=== PATIENT | female | born 1985 | race African-American/Black ===

== ENCOUNTER 2021-04-02 10:20 | Emergency (ER) | payer MEDICARE, OTHER ==
[~2021-04-02] VITALS: Ht 162.6 cm; Wt 93.0 kg
--- NOTE | 2021-04-02 10:24 | NUR ---
pt clay accompanied by pd. per ems report, pt left a psych facilty [place]. pt ems unable to provide further history. pt is not responding appropriately while being triaged. stable vitals. awaiting md orellana.
[2021-04-02] MEDS ORDERED: OLANZAPINE 5 MG TABLET ONE (10:58)
[2021-04-02] MEDS ORDERED: OLANZAPINE ZYDIS 5 MG TAB.RAPDIS PO ONE (11:00)
--- NOTE | 2021-04-02 11:07 | NUR ---
patient refuses to give urine at this time
[2021-04-02 11:29] LABS: BASOPHILS # (AUTO) 0.1 /CMM (0.0-0.2); BASOPHILS % (AUTO) 0.8 % (0.0-2.0); EOSINOPHILS % (AUTO) 0.4 % (0.0-6.0); HEMATOCRIT 40 % (33-45); HEMOGLOBIN 13.3 g/dL (11.5-14.8); LYMPHOCYTES # (AUTO) 1.6 /CMM (0.8-4.8); LYMPHOCYTES % (AUTO) 23.4 % (20.0-44.0); MEAN CORPUSCULAR HGB CONC 33 g/dl (31.0-36.0); MEAN CORPUSCULAR VOLUME 93 fL (82-100); MONOCYTES # (AUTO) 0.6 /CMM (0.1-1.30); MONOCYTES % (AUTO) 9.7 % (2.0-12.0); NEUTROPHILS # (AUTO) 4.4 /CMM (1.8-8.9); NEUTROPHILS % (AUTO) 65.7 % (43.0-81.0); PLATELET COUNT (AUTO) 244 /CMM (150-450); RED BLOOD CELL COUNT(AUTO) 4.28 MIL/uL (4.0-5.2); WHITE BLOOD COUNT (AUTO) 6.7 K/uL (4.3-11.0)
[2021-04-02 11:43] LABS: CALCIUM, SERUM 8.9 mg/dL (8.5-10.1); CARBON DIOXIDE 31 mmol/L (21-32); CHLORIDE 101 mmol/L (98-107); CREATININE 1.1 mg/dL (0.6-1.3); GLUCOSE 79 mg/dL (74-106); POTASSIUM 3.5 mmol/L (3.5-5.1); SODIUM SERUM 137 mmol/L (136-145); UREA NITROGEN, BLOOD 11 mg/dL (7-18)
[2021-04-02 11:49] LABS: ALANINE AMINOTRANSFERASE 18 U/L (12-78); ALBUMIN 3.9 g/dL (3.4-5.0); ALCOHOL, BLOOD < 3 mg/dL (0-0); ALKALINE PHOSPHATASE 60 U/L (46-116); ASPARTATE AMINOTRANSFERASE 26 U/L (15-37); BILIRUBIN,DIRECT 0.1 mg/dL (0.0-0.2); BILIRUBIN,TOTAL 0.6 mg/dL (0.2-1.0); TOTAL PROTEIN, SERUM 7.4 g/dL (6.4-8.2)
[2021-04-02 11:50] LABS: ACETAMINOPHEN 0 ug/ml (10-30)
--- NOTE | 2021-04-02 12:09 | NUR ---
URINE COLLECTED AND SENT TO THE LAB
[2021-04-02 12:23] LABS: BILIRUBIN,URINE Negative (NEGATIVE); COLOR,URINE YELLOW (YELLOW); LEUKOCYTE ESTERASE ,URINE Trace (NEGATIVE); NITRITE, URINE Negative (NEGATIVE); PH,URINE 7.5 (5.0-8.0); PROTEIN,URINE Negative (NEGATIVE); UGLUCOSE Negative (NEGATIVE)
--- NOTE | 2021-04-02 12:34 | NUR ---
Good Tapia (conservator) [phone]
[2021-04-02 12:46] LABS: BACTERIA,URINE Few /HPF (None Seen); RBC,URINE 0-2 /HPF (0-2); SQUAMOUS EPITHELIAL CELL,UR Few /HPF (None Seen)
--- NOTE | 2021-04-02 13:13 | NUR ---
THE PATIENT RESTING IN BED. IN NO APPARENT DISTRESS.
--- NOTE | 2021-04-02 15:10 | NUR ---
SS Consult: SS consult requested for pt. on a 5150 for DTS by [employer]. The pt. is a 36-year old Black female. Per hold, [employer] were called as [place]. [place] a mall [place] the fire [place]. Per hold, pt. was responding to internal stimuli & told police that she has Hx. of Bipolar Disorder and Schizophrenia and had recently AWOLed from a Mental Health Facility. Per hold pt. also stated she wanted to hurt herself by unknown means, had not slept or taken her medication. ERNIE met with pt. bedside. The pt. is alert & oriented x 1 (person). Pt. is irritable, disoriented with pressured speech.Pt. is a poor historian. Patient requested SW to call her Conservator, Good Tapia [phone]. ERNIE called and spoke to Good to gather collateral information. Good stated that he had just visited the pt. in the ED. Good provides Conservatorship paperwork which outlines that Good is Conservator of the Person Only. Per Good, he admitted the pt. so [facility] as pt. is on a waitlist for an [facility]. Per Conservator, he would lie pt. to be placed at any [facility] facility. Per conservator, pt. may return to [facility]. ERNIE faxed clinicals, hold & conservatorship paperwork to [facility] fax: [phone] [facility] fax: [phone]; and to [facility] FAX:[phone] TEL: [phone]] for psychiatric placement. Pending placement. ERNIE notified nursing. ERNIE placed the following Mental Health resources in pt.s discharge packet: Counseling--Outpatient [facility] [place] [address] [place] [address] [place] [address] (Specializes in in-depth psychotherapy for emotional distress: anxiety, depression, interpersonal conflicts, life transitions, childhood abuse) [facility] [address] [place] [address] (Assist with solving problem marital difficulties, separation & divorce, aging parents, & grief, chronic & terminal illness) [facility] [address] [place] [address] (Deal with loss & grief, anxiety, marital difficulties) [facility] [address] [place], [place] [address] (Provide in-home mental services to people who are incapable of leaving their homes) [facility] [address] [place] [address] [facility] [address] [place], [place] [id number] PSYCHIATRIC OUTPATIENT SERVICES [facility] Partial Hospitalization and Intensive Outpatient Program (Managed Care and [place] Only)[address] [facility] [phone] [facility] Partial Hospitalization and Outpatient Gdyitkw[address] [facility] [address] [place], [place] [phone] [facility] Partial Hospitalization and Outpatient [address] [place], [place] [phone] Count includes the [facility] [address] [place], [place] [phone] [facility] Partial Hospitalization and Outpatient Rclyhcz85676 [facility] [place], [phone] Crisis and Hotline Telephone Numbers 24-Hour service unless stated [place] Crisis Hotlines: [facility] Mental Health/Crisis Line........[phone] Suicide Prevention Center (24 Hours).......[phone] Suicide Prevention Crisis Center.......[phone] (24 Hours) Assaults Against Women Hotline.........469.840.7630 (24 Hours -- [facility]) Women [facility] Children Crisis Retirement...........[phone] (24 Hours) Child Abuse Hotline............827.121.6546 [facility] (24 Hours)..........[phone] Alcoholics Anonymous (24 Hours)..........[phone] Cocaine Anonymous (24 Hours)............[phone] Narcotics Anonymous (24 Hours)..........[phone] [facility] [address] [place] [address] Mental Health Services [facility] [place] [address] [place] [address] Services: Outpatient therapy for children, teens, young adults, adults, older adults, and families; Psychiatric services, medication support Crisis and Hotline Telephone Numbers 24-Hour service unless stated [place] Crisis Hotlines: [place] Mental Health/Crisis Line........661.612.7387 Suicide Prevention Center (24 Hours).......313.714.1888 Suicide Prevention Crisis Center.......[phone] (24 Hours) Alcoholics Anonymous (24 Hours)..........[phone] National Crisis Hotlines: Alcohol and Drug Helpline - Provides referrals to local facilities where adolescents and adults can seek help. Brief intervention. [facility] Helpline National [place] [facility] 2-798-236-MARIA ELENA National Youth Crisis Hotline [facility]. Provides free information on specific disorders, referral directory to mental health providers, national directory of local mental health associations (M-F, 9-5 EST) [facility] Information Line: Provide sinformation and literature on mental illness by disorder-for professionals and general public.
--- NOTE | 2021-04-02 15:10 | NUR ---
ERNIE faxed clinicals, hold & conservatorship paperwork to [facility] [[address] [place], [place] [id number] ; fax: [phone]]; [facility] [[address] [address];Unit TEL: [phone] fax: [phone]]; and to [facility] [[address] [address] FAX:[phone] TEL: [phone]] for psychiatric placement. Pending placement. ERNIE notified nursing.
--- NOTE | 2021-04-02 16:21 | NUR ---
ERNIE received call from Lydia at [facility] statin pt. has been accepted to their MHU under Dr. Spencer. ERNIE notified ED that need nurse to nurse report to be given at [phone].
--- NOTE | 2021-04-02 16:21 | NUR ---
PT ACCEPTED AT [facility]. [address] [facility] GRANDE [phone] FOR REPORT.
--- NOTE | 2021-04-02 16:25 | NUR ---
SW called and notified pt.'s Conservator, Good Tapia [phone] that pt. was accepted at [facility] [[address] [address]; [phone]]. Good expressed understanding and is agreeable to placement.
--- NOTE | 2021-04-02 16:42 | NUR ---
[facility] AR[facility]ANGED VIE [facility]: ETA 1730
--- NOTE | 2021-04-02 17:30 | NUR ---
PATIENT`S $5 HANDED TO EMT TO TAKE WITH PATIENT`S BELONGING TO TRANSFERING FACILITY.
[2021-04-02 18:15] VITALS: BP 131/80
== END 2021-04-02 18:15 ==
LOC: ER 11:08
DX: F20.9 Schizophrenia, unspecified (principal); Z20.822 Contact with and (suspected) exposure to COVID-19
CPT/HCPCS: 36415; 80048-TC; 80076-TC; 81001; 84702-TC; 85025-TC; C9803; G0480

== ENCOUNTER 2023-09-20 09:41 | Emergency (ER) | payer MEDICARE, OTHER ==
[~2023-09-20] VITALS: Ht 170.2 cm; Wt 61.2 kg
[2023-09-20] MEDS ORDERED: HALOPERIDOL 5 MG TABLET ONE ×2 (10:10→20:15)
[2023-09-20 10:30] LABS: ALANINE AMINOTRANSFERASE 19 U/L (12-78); ALBUMIN 4.2 g/dL (3.4-5.0); ALCOHOL, BLOOD < 3 mg/dL (0-10); ALKALINE PHOSPHATASE 65 U/L (46-116); ASPARTATE AMINOTRANSFERASE 18 U/L (15-37); BILIRUBIN,DIRECT 0.1 mg/dL (0.0-0.2); BILIRUBIN,TOTAL 0.5 mg/dL (0.2-1.0); CALCIUM, SERUM 9.2 mg/dL (8.5-10.1); CARBON DIOXIDE 27 mmol/L (21-32); CHLORIDE 104 mmol/L (98-107); CREATININE 0.8 mg/dL (0.6-1.3); GLUCOSE 86 mg/dL (74-106); POTASSIUM 3.9 mmol/L (3.5-5.1); SODIUM SERUM 138 mmol/L (136-145); TOTAL PROTEIN, SERUM 7.5 g/dL (6.4-8.2); UREA NITROGEN, BLOOD 16 mg/dL (7-18)
[2023-09-20] MEDS ORDERED: HALOPERIDOL 1 MG TABLET PO ONE ×2 (10:30→20:30)
[2023-09-20 10:32] LABS: ACETAMINOPHEN <10 ug/ml (10-30); SALICYLATE 0.6 mg/dL (2.8-20.0)
[2023-09-20 10:33] LABS: BASOPHILS % (AUTO) 0.9 % (0.0-2.0); EOSINOPHILS # (AUTO) 0.1 K/uL (0.0-0.7); EOSINOPHILS % (AUTO) 1.7 % (0.0-6.0); HEMATOCRIT 34 % (33-45); LYMPHOCYTES # (AUTO) 0.9 K/uL (0.8-4.8); LYMPHOCYTES % (AUTO) 29.1 % (20.0-44.0); MEAN CORPUSCULAR HEMOGLOBIN 27 PG (26.0-33.0); MEAN CORPUSCULAR HGB CONC 33 g/dl (31.0-36.0); MEAN CORPUSCULAR VOLUME 82 fL (82-100); MONOCYTES # (AUTO) 0.3 K/uL (0.1-1.30); MONOCYTES % (AUTO) 8.3 % (2.0-12.0); NEUTROPHILS # (AUTO) 1.9 K/uL (1.8-8.9); PLATELET COUNT (AUTO) 261 K/uL (150-450); RED CELL DISTRIBUTION WIDTH 14.7 % (11.5-15.0); WHITE BLOOD COUNT (AUTO) 3.1 K/uL (4.3-11.0)
[2023-09-20 11:09] LABS: APPEARANCE,URINE CLEAR (CLEAR); BILIRUBIN,URINE NEGATIVE (NEGATIVE); BLOOD, URINE 1+ Ery/uL (NEGATIVE); COLOR,URINE YELLOW (YELLOW); KETONES,URINE NEGATIVE (NEGATIVE); LEUKOCYTE ESTERASE ,URINE NEGATIVE (NEGATIVE); NITRITE, URINE NEGATIVE (NEGATIVE); PROTEIN,URINE NEGATIVE (NEGATIVE); UGLUCOSE NEGATIVE (NEGATIVE); UROBILINOGEN,URINE 0.2 EU/dL (0.2)
[2023-09-20 15:21] LABS: ADD URINE CULTURE NO; BACTERIA,URINE Few /HPF (None Seen); WBC,URINE NONE SEEN /HPF (0-3)
[2023-09-20 15:29] LABS: PREGNANCY TEST URINE QUAL NEGATIVE (NEGATIVE)
[2023-09-20] MEDS ORDERED: hydrOXYzine 10 MG TABLET PO ONE (15:30)
[2023-09-20] MEDS ORDERED: hydrOXYzine 10 MG TABLET ONE (16:35)
[2023-09-20 20:32] LABS: AMPHETAMINE, URINE NEGATIVE (NEGATIVE); BARBITURATE, URINE NEGATIVE (NEGATIVE); BENZODIAZEPINE, URINE NEGATIVE (NEGATIVE); CANNABINOID, URINE NEGATIVE (NEGATIVE); COCCAINE, URINE NEGATIVE (NEGATIVE); OPIATE, URINE NEGATIVE (NEGATIVE); PHENCYCLIDINE SCREEN,URINE NEGATIVE (NEGATIVE)
[2023-09-21 06:45] VITALS: BP 145/88; TEMP 98.2; O2SAT 100
== END 2023-09-21 06:45 | disposition home or self-care (01) ==
LOC: ER 09:41
DX: R45.851 Suicidal ideations (principal); F20.9 Schizophrenia, unspecified; F31.9 Bipolar disorder, unspecified; Z20.822 Contact with and (suspected) exposure to COVID-19; Z88.1 Allergy status to other antibiotic agents
CPT/HCPCS: 99285; 85025; 80048; 80076; 84703; 81001; 36415; 87426; 80143; 80320; 80307; Q0177; C9803; G0480

== ENCOUNTER 2023-09-21 19:22 | Emergency (ER) | payer MEDICARE, OTHER | END 2023-09-21 20:42 | disposition left against medical advice (07) | LOC: ER 19:31 | DX: R52 Pain, unspecified (principal); Z53.21 Procedure and treatment not carried out due to patient leaving prior to being seen by health care provider ==

== ENCOUNTER 2023-11-11 04:53 | Emergency (ER) | payer MEDICARE, OTHER ==
[~2023-11-11] VITALS: Ht 165.1 cm; Wt 61.2 kg
== END 2023-11-11 06:12 ==
LOC: ER 05:05
DX: Z00.00 Encounter for general adult medical examination without abnormal findings (principal); Z59.00 Homelessness unspecified; F20.9 Schizophrenia, unspecified; F31.9 Bipolar disorder, unspecified; Z88.1 Allergy status to other antibiotic agents